=== PATIENT | female | born 2000 | race Caucasian/White ===

== ENCOUNTER 2021-11-15 01:42 | Emergency (ER) | payer BC ==
[2021-11-15] MEDS ORDERED: Acetaminophen 500 MG TAB ONE (02:03)
[2021-11-15] MEDS ORDERED: diphenhydrAMINE 25 MG CAP ONE (02:03)
== END 2021-11-15 02:16 | disposition home or self-care (01) ==
LOC: BURERS 01:42
DX: O99.511 Diseases of the respiratory system complicating pregnancy, first trimester (principal); J06.9 Acute upper respiratory infection, unspecified; O99.891 Other specified diseases and conditions complicating pregnancy; H65.92 Unspecified nonsuppurative otitis media, left ear; Z20.822 Contact with and (suspected) exposure to COVID-19; Z3A.12 12 weeks gestation of pregnancy
CPT/HCPCS: 99283; U0003; U0005